=== PATIENT | female | born 1970 | race Caucasian/White ===

== ENCOUNTER 2021-04-12 07:00 | Day surgery (SDC) | payer BC ==
[~2021-04-12] VITALS: Ht 170.2 cm; Wt 68.7 kg
[~2021-04-12 07:00] MED LIST: EPIPEN 2-P0.3 MG/0.3 IJ; Flonase 0.05% N16 GM; IBUPROFEN 600 MG; SERT100
== END 2021-04-12 09:10 | disposition home or self-care (01) ==
LOC: ORSCSDS 07:00
PROVIDERS: Internal Medicine Gastroenterology
PROC: 0DJD8ZZ Inspection of Lower Intestinal Tract, Via Natural or Artificial Opening Endoscopic (ICD-10-PCS; principal; 2021-04-12 08:00)
DX: Z12.11 Encounter for screening for malignant neoplasm of colon (principal); Z79.899 Other long term (current) drug therapy
CPT/HCPCS: J2405; J2704; J7120

== ENCOUNTER 2021-05-03 08:31 | Day surgery (SDC) | payer BC ==
[~2021-05-03] VITALS: Ht 170.2 cm; Wt 66.4 kg
[~2021-05-03 08:31] MED LIST changes: +CALCIUM 500 MG1 EAC2 PO; +GLUCHON PO; +MULVITA PO
--- NOTE | 2021-05-03 09:10 | NUR ---
[facility] in [facility] warming gown applied. History, Chart, Medications and Allergies reviewed before start of procedure.Lungs clear T/O to Auscultation. Patient confirms NPO status and agrees with scheduled surgery. Pre-Op teaching done. Pt verbalizes understanding. Patient States Post-Procedure ride home has been arranged. Patient reports completing Chlorhexadine shower X2 prior to admission to hospital.
--- NOTE | 2021-05-03 10:34 | NUR ---
05/03/21 1034 Guido Zaldivar MILIAN CATHETER PLACED BY DR LINDY HENDERSON AFTER ASEPSIS AND DRAPING
[2021-05-03 16:12] LABS: BASOPHILS ABSOLUTE AUTO 0.01 K/mm3 (0.00-0.23); BASOPHILS PERCENT AUTO 0 % (0-2); EOSINOPHILS PERCENT AUTO 0 % (0-6); Hematocrit 39.6 % (33.0-51.0); Hemoglobin 13.4 g/dL (11.5-16.0); IMMATURE GRAN ABSOLUTE AUTO 0.04 K/mm3 (0.00-0.10); IMMATURE GRAN PERCENT AUTO 0 % (0-1); LYMPHOCYTES ABSOLUTE AUTO 0.42 K/mm3 (0.84-5.20); LYMPHOCYTES PERCENT AUTO 5 % (21-46); MONOCYTES ABSOLUTE AUTO 0.16 K/mm3 (0.16-1.47); MONOCYTES PERCENT AUTO 2 % (4-13); Mean Corpuscular HGB 29.6 pg (26.0-34.0); Mean Corpuscular HGB Conc 33.8 g/dL (31.5-36.5); Mean Corpuscular Volume 87 fL (80-100); Mean Platelet Volume 10.6 fL (9.1-12.4); NEUTROPHILS ABSOLUTE AUTO 8.66 K/mm3 (1.96-9.15); NEUTROPHILS PERCENT AUTO 93 % (41-73); Platelet Count 208 K/mm3 (150-400); RDW Coefficient Variation 12.5 % (11.7-14.2); RDW Standard Deviation 39.9 fL (35.1-46.3); Red Blood Cell Count 4.53 M/mm3 (3.80-5.20); White Blood Cell Count 9.29 K/mm3 (4.00-11.30)
--- NOTE | 2021-05-03 18:36 | NUR ---
PATIENT ARRIVED TO THE FLOOR FROM PACU AT AROUND 1400. AWAKE AND ALERT. MILIAN CATH PATIENT. DRESSINGS TO ABD CDI. NO SIGNS OR SYMPTOMS ACUTE DISTRESS NOTED. MILIAN REMOVED AT 1530 AFTER PATIENT WALKED. TOLERATED WELL. PATIENT TAKING PO FAIRLY WELL, SHE IS AFRAIN OF POST OP NAUSEA. PATIENT HAS VOIDED 250 ML SINCE MILIAN WAS REMOVED. PATIENT HAS NOT HAD PO PAIN MEDS YET SHE IS AFRAID OF NAUSEA, EXPLAINED SHE NEEDED TO TAKE PO PAIN MEDS BEFORE BEING ABLE TO GO HOME, SHE STATED SHE UNDERSTOOD. CALL LIGHT AND WATER IN EASY REACH. WILL MONITOR.
[2021-05-04 05:03] LABS: BASOPHILS ABSOLUTE AUTO 0.01 K/mm3 (0.00-0.23); BASOPHILS PERCENT AUTO 0 % (0-2); EOSINOPHILS ABSOLUTE AUTO 0.01 K/mm3 (0.00-0.68); EOSINOPHILS PERCENT AUTO 0 % (0-6); Hematocrit 35.5 % (33.0-51.0); Hemoglobin 11.8 g/dL (11.5-16.0); IMMATURE GRAN ABSOLUTE AUTO 0.04 K/mm3 (0.00-0.10); IMMATURE GRAN PERCENT AUTO 0 % (0-1); LYMPHOCYTES ABSOLUTE AUTO 1.06 K/mm3 (0.84-5.20); LYMPHOCYTES PERCENT AUTO 10 % (21-46); MONOCYTES ABSOLUTE AUTO 0.81 K/mm3 (0.16-1.47); MONOCYTES PERCENT AUTO 8 % (4-13); Mean Corpuscular HGB Conc 33.2 g/dL (31.5-36.5); Mean Corpuscular Volume 87 fL (80-100); Mean Platelet Volume 10.5 fL (9.1-12.4); NEUTROPHILS ABSOLUTE AUTO 8.31 K/mm3 (1.96-9.15); NEUTROPHILS PERCENT AUTO 81 % (41-73); Platelet Count 197 K/mm3 (150-400); RDW Coefficient Variation 12.7 % (11.7-14.2); RDW Standard Deviation 40.1 fL (35.1-46.3); Red Blood Cell Count 4.07 M/mm3 (3.80-5.20); White Blood Cell Count 10.24 K/mm3 (4.00-11.30)
--- NOTE | 2021-05-04 06:11 | NUR ---
VSS. IV FLUIDS RUNNING. +VOIDING. BLOOD IN URINE. BECOMING PROGRESSIVELY MEAT AND POULTRY INSPECTOR COLORED THROUGHOUT SHIFT. AMB IN ROOM IND. DENIES N. PRN PAIN MEDS GIVEN W/ ADEQUATE RELIEF-SEE EMAR. LAP SITES CDI. NO ISSUES THROUGHOUT SHIFT. WILL CONTINUE TO MONITOR
[2021-05-04] MEDS ORDERED: Norco 5-325 Ta1 EACH PO (09:50)
[2021-05-04] MEDS ORDERED: MOTRIN IB200 MG PO (09:52)
--- NOTE | 2021-05-04 10:05 | NUR ---
DISCHARGE NOTE: PATIENT WAS EDUCATED ON DISCHARGE INSTRUCTIONS. SHE VERBALIZED UNDERSTANDING OF INSTRUCTIONS. HARD PERSCRIPTION IS IN HER INSTRUCTIONS FOLDER. IV WAS TAKEN OUT AND WAS WNL. HER 2 LAP SITES ON HER ABD ARE C/D/I. SHE IS TOLERATING PO INTAKE AND IS VOIDING WITH SCANT AMOUNT OF BLOOD IN URINE. PATIENT IS AMBULATING IN THE ROOM IND. PAIN IS MANAGED WITH PO MEDICATIONS. SHE IS DRESSED AND HAS HER ITEMS IN THE ROOM GATHERED. PATIENT IS AWAITING HER RIDE WHO WILL TAKE HER HOME. SHE WILL BE WHEELCHAIRED OUT TO THE CAR WHEN HER RIDE IS HERE.
== END 2021-05-04 10:42 | disposition home or self-care (01) ==
LOC: ORSCMMR 08:31 → ORD 10:00 → ORSCMMR 10:00 → SURS 13:15 → ORSCMMR 05-04 10:42
PROVIDERS: Obstetrics & Gynecology
PROC: 0UT7FZZ Resection of Bilateral Fallopian Tubes, Via Natural or Artificial Opening With Percutaneous Endoscopic Assistance (ICD-10-PCS; principal; 2021-05-03 10:00)
PROC: 0UT9FZZ Resection of Uterus, Via Natural or Artificial Opening With Percutaneous Endoscopic Assistance (ICD-10-PCS; principal; 2021-05-03 10:00)
PROC: 0JQC0ZZ Repair Pelvic Region Subcutaneous Tissue and Fascia, Open Approach (ICD-10-PCS; principal; 2021-05-03 10:00)
DX: N81.2 Incomplete uterovaginal prolapse (principal)
CPT/HCPCS: 36415; 85025; A9270; J0171; J0690; J1100; J1885; J2250; J2370; J2405; J2704; J3010; J7120

== ENCOUNTER → 2022-01-29 | Outpatient (CLI) | payer BC ==
[~2022-01-29] MED LIST changes: +MOTRIN IB200 MG PO; +Norco 5-325 Ta1 EACH PO
== END | disposition home or self-care (01) ==
LOC: LAB SHORT 11:16
DX: D22.71 Melanocytic nevi of right lower limb, including hip (principal)
CPT/HCPCS: 88305